=== PATIENT | female | born 1935 | race Caucasian/White ===

== ENCOUNTER 2016-11-02 11:05 | Inpatient (IN) | payer MEDICARE ==
[~2016-11-02] VITALS: Ht 154.9 cm; Wt 64.5 kg
[2016-11-02] MEDS ORDERED: DUONEB INH ONE (13:03)
[2016-11-02 18:15] VITALS: BP_SYST 142; RESP 18; TEMP 98.7; Ht 154.9 cm; Wt 64.5 kg
[2016-11-02] MEDS: PANTOPRAZOLE 40 MG VIAL IV SCH (20:57)
[2016-11-02 23:05] VITALS: BP_SYST 113; RESP 18; TEMP 99.1
[2016-11-03] VITALS (13 sets, daily range): BP systolic 111–135; RESP 16–20; TEMP 98.3–99.4
[2016-11-03] MEDS: PANTOPRAZOLE 40 MG VIAL IV SCH ×2 (08:22→21:16)
[2016-11-03] MEDS ORDERED: PROMETHAZINE 25 MG TAB PO PRN (09:45)
[2016-11-03] MEDS ORDERED: NEB-BROVANA 15 MCG/2 ML INH ONE (10:16)
[2016-11-03] MEDS ORDERED: DIGOXIN 0.125 MG TAB PO SCH (12:00)
[2016-11-03] MEDS: LEVOFLOXACIN 500 MG/100 ML 100 ML IV SCH (13:19)
[2016-11-03] MEDS: AMIODARONE 200 MG TAB PO SCH (14:46)
[2016-11-03] MEDS: METRONIDAZOLE IV SCH ×3 (14:46→23:52)
[2016-11-03] MEDS: SODIUM CHLORIDE 0.9% IV SCH ×3 (14:46→23:52)
[2016-11-03] MEDS ORDERED: ADEMPAS 2.5 MG PO SCH (16:00)
[2016-11-03] MEDS: NEB-BROVANA 15 MCG/2 ML INH SCH (19:49)
[2016-11-03] MEDS ORDERED: *PINK BRACELET XX ONE (20:30)
[2016-11-03] MEDS ORDERED: DEXTROSE 50% SYRINGE 50 ML IV PRN (20:50)
[2016-11-03] MEDS ORDERED: GLUCAGON 1 MG VIAL IM PRN (20:50)
[2016-11-03] MEDS: ADEMPAS 2.5 MG PO SCH (21:19)
[2016-11-03] MEDS: BOSENTAN 125 MG PO SCH (21:19)
[2016-11-03] MEDS: KCL 20 MEQ PACK PO SCH (21:20)
[2016-11-03] MEDS: PSEUDOEPHEDRINE 30 MG PO SCH (21:27)
[2016-11-03] MEDS: GUAIFENESIN ER 600 MG TABCR PO SCH (21:27)
[2016-11-03] MEDS: DULoxetine 30 MG CAP PO SCH (21:27)
[2016-11-03] MEDS: METOPROLOL TART 50 MG TAB PO SCH (21:27)
[2016-11-03] MEDS: Furosemide 40 MG TAB PO SCH (21:27)
[2016-11-03] MEDS: [UNRECOGNIZED DRUG - OTHER] RECTAL SCH (21:28)
[2016-11-03] MEDS: DUONEB INH PRN (22:53)
[2016-11-03] MEDS ORDERED: TREPROSTINIL 1.74 MG/2.9 ML INH SCH (23:00)
[2016-11-04 03:12] VITALS: BP_SYST 122; RESP 20; TEMP 98.9
[2016-11-04] MEDS: SODIUM CHLORIDE 0.9% IV SCH ×4 (05:23→23:56)
[2016-11-04] MEDS: METRONIDAZOLE IV SCH ×4 (05:23→23:56)
[2016-11-04] MEDS: ALPRAZOLAM 0.25 MG TAB PO PRN ×2 (05:23→20:12)
[2016-11-04] MEDS: SODIUM CHLORIDE 0.9% FLUSH BAG 500 ML IV SCH (06:39)
[2016-11-04] MEDS: NEB-BROVANA 15 MCG/2 ML INH SCH ×2 (06:54→19:03)
[2016-11-04] MEDS: DUONEB INH PRN ×4 (06:54→22:40)
[2016-11-04] MEDS: TREPROSTINIL 1.74 MG/2.9 ML INH SCH ×4 (07:15→22:42)
[2016-11-04 07:20] VITALS: BP_SYST 116; RESP 16; TEMP 97.8
[2016-11-04] MEDS: *HOME MEDS IN MED CART XX SCH ×2 (08:00→21:00)
[2016-11-04] MEDS ORDERED: TORSEMIDE 20 MG TAB PO SCH (09:00)
[2016-11-04] MEDS: PSEUDOEPHEDRINE 30 MG PO SCH ×2 (09:00→20:59)
[2016-11-04] MEDS: PANTOPRAZOLE 40 MG VIAL IV SCH ×2 (09:27→21:00)
[2016-11-04] MEDS: SALINE FLUSH 10 ML FLUSH SCH ×2 (09:27→21:00)
[2016-11-04] MEDS: novoLOG MIX 70/30 INSULIN SUBQ SCH (09:28)
[2016-11-04] MEDS: LEVOFLOXACIN 500 MG/100 ML 100 ML IV SCH (09:29)
[2016-11-04] MEDS: ADEMPAS 2.5 MG PO SCH ×3 (09:29→20:55)
[2016-11-04] MEDS: BOSENTAN 125 MG PO SCH ×2 (09:29→20:58)
[2016-11-04] MEDS: AMIODARONE 200 MG TAB PO SCH (09:30)
[2016-11-04] MEDS: METOPROLOL TART 50 MG TAB PO SCH ×2 (09:30→20:59)
[2016-11-04] MEDS: KCL 20 MEQ PACK PO SCH ×2 (09:30→20:58)
[2016-11-04] MEDS: FEXOFENADINE 180 MG TAB PO SCH (09:30)
[2016-11-04] MEDS: GUAIFENESIN ER 600 MG TABCR PO SCH ×2 (09:30→21:00)
[2016-11-04] MEDS: MONTELUKAST 10 MG TAB PO SCH (09:31)
[2016-11-04] MEDS: SPIRONOLACTONE 25 MG TAB PO SCH (09:31)
[2016-11-04] MEDS: PREDNISONE 20 MG TAB PO SCH (09:31)
[2016-11-04] MEDS: Furosemide 40 MG TAB PO SCH ×2 (09:31→20:59)
[2016-11-04 10:42] VITALS: BP_SYST 132; RESP 20; TEMP 97.9
[2016-11-04 14:39] VITALS: BP_SYST 124; RESP 20; TEMP 98
[2016-11-04] MEDS ORDERED: novoLOG MIX 70/30 INSULIN SUBQ SCH (17:00)
[2016-11-04 19:36] VITALS: BP_SYST 116; RESP 18; TEMP 98.5
[2016-11-04] MEDS: [UNRECOGNIZED DRUG - OTHER] RECTAL SCH (20:59)
[2016-11-04] MEDS: DULoxetine 30 MG CAP PO SCH (20:59)
[2016-11-04 23:50] VITALS: BP_SYST 115; RESP 16; TEMP 98.6
[2016-11-05] VITALS (11 sets, daily range): BP systolic 103–125; RESP 18–24; TEMP 98.4–98.8
[2016-11-05] MEDS: SODIUM CHLORIDE 0.9% FLUSH BAG 500 ML IV SCH (05:38)
[2016-11-05] MEDS: METRONIDAZOLE IV SCH ×3 (05:39→18:21)
[2016-11-05] MEDS: SODIUM CHLORIDE 0.9% IV SCH ×3 (05:39→18:21)
[2016-11-05] MEDS: NEB-BROVANA 15 MCG/2 ML INH SCH ×2 (06:19→19:34)
[2016-11-05] MEDS: TREPROSTINIL 1.74 MG/2.9 ML INH SCH ×4 (06:19→23:04)
[2016-11-05] MEDS: DUONEB INH PRN ×4 (06:19→22:57)
[2016-11-05] MEDS: *HOME MEDS IN MED CART XX SCH ×2 (07:25→19:26)
[2016-11-05] MEDS: PANTOPRAZOLE 40 MG VIAL IV SCH (08:01)
[2016-11-05] MEDS: novoLOG MIX 70/30 INSULIN SUBQ SCH ×2 (08:02→17:10)
[2016-11-05] MEDS: SPIRONOLACTONE 25 MG TAB PO SCH (08:03)
[2016-11-05] MEDS: KCL 20 MEQ PACK PO SCH ×2 (08:03→21:08)
[2016-11-05] MEDS: LEVOFLOXACIN 500 MG/100 ML 100 ML IV SCH (08:03)
[2016-11-05] MEDS: GUAIFENESIN ER 600 MG TABCR PO SCH ×2 (08:04→21:09)
[2016-11-05] MEDS: PREDNISONE 20 MG TAB PO SCH (08:04)
[2016-11-05] MEDS: Furosemide 40 MG TAB PO SCH ×2 (08:04→21:09)
[2016-11-05] MEDS: AMIODARONE 200 MG TAB PO SCH (08:04)
[2016-11-05] MEDS: MONTELUKAST 10 MG TAB PO SCH (08:04)
[2016-11-05] MEDS: FEXOFENADINE 180 MG TAB PO SCH (08:04)
[2016-11-05] MEDS: BOSENTAN 125 MG PO SCH ×2 (08:04→21:09)
[2016-11-05] MEDS: ADEMPAS 2.5 MG PO SCH ×3 (08:05→21:09)
[2016-11-05] MEDS: ALPRAZOLAM 0.25 MG TAB PO PRN (08:10)
[2016-11-05] MEDS: METOPROLOL TART 50 MG TAB PO SCH ×2 (08:20→21:08)
[2016-11-05] MEDS: SALINE FLUSH 10 ML FLUSH SCH ×2 (08:20→21:07)
[2016-11-05] MEDS: PSEUDOEPHEDRINE 30 MG PO SCH ×2 (08:20→21:08)
[2016-11-05] MEDS: IRON SUCROSE COMPLEX 300 MG in SODIUM CHLORIDE 0.9% 250 ML IV SCH (10:39)
[2016-11-05] MEDS: PANTOPRAZOLE 40 MG TAB PO SCH (17:09)
[2016-11-05] MEDS: DULoxetine 30 MG CAP PO SCH (21:09)
[2016-11-05] MEDS: [UNRECOGNIZED DRUG - OTHER] RECTAL SCH (21:10)
[2016-11-06] VITALS (10 sets, daily range): BP systolic 100–122; RESP 18; TEMP 97.8–98.6
[2016-11-06] MEDS: SALINE FLUSH 10 ML FLUSH PRN ×2 (00:31→05:49)
[2016-11-06] MEDS: SODIUM CHLORIDE 0.9% IV SCH ×4 (00:31→19:30)
[2016-11-06] MEDS: METRONIDAZOLE IV SCH ×4 (00:31→19:30)
[2016-11-06] MEDS: OXYCODONE/APAP 5/325 TAB PO PRN (02:05)
[2016-11-06] MEDS: SODIUM CHLORIDE 0.9% FLUSH BAG 500 ML IV SCH (05:49)
[2016-11-06] MEDS: PANTOPRAZOLE 40 MG TAB PO SCH ×2 (05:54→16:51)
[2016-11-06] MEDS: DUONEB INH PRN ×4 (06:48→23:00)
[2016-11-06] MEDS: NEB-BROVANA 15 MCG/2 ML INH SCH ×2 (06:48→18:28)
[2016-11-06] MEDS: TREPROSTINIL 1.74 MG/2.9 ML INH SCH ×4 (07:00→23:01)
[2016-11-06] MEDS: *HOME MEDS IN MED CART XX SCH ×2 (07:11→19:45)
[2016-11-06] MEDS: KCL 20 MEQ PACK PO SCH ×2 (08:13→21:39)
[2016-11-06] MEDS: METOPROLOL TART 50 MG TAB PO SCH ×2 (08:14→21:41)
[2016-11-06] MEDS: novoLOG MIX 70/30 INSULIN SUBQ SCH ×2 (08:14→17:09)
[2016-11-06] MEDS: FEXOFENADINE 180 MG TAB PO SCH (08:14)
[2016-11-06] MEDS: BOSENTAN 125 MG PO SCH ×2 (08:14→21:41)
[2016-11-06] MEDS: AMIODARONE 200 MG TAB PO SCH (08:14)
[2016-11-06] MEDS: ADEMPAS 2.5 MG PO SCH ×3 (08:14→21:41)
[2016-11-06] MEDS: PSEUDOEPHEDRINE 30 MG PO SCH ×2 (08:15→21:00)
[2016-11-06] MEDS: Furosemide 40 MG TAB PO SCH ×2 (08:15→21:40)
[2016-11-06] MEDS: MONTELUKAST 10 MG TAB PO SCH (08:15)
[2016-11-06] MEDS: PREDNISONE 20 MG TAB PO SCH (08:15)
[2016-11-06] MEDS: GUAIFENESIN ER 600 MG TABCR PO SCH ×2 (08:16→21:40)
[2016-11-06] MEDS: LEVOFLOXACIN 500 MG/100 ML 100 ML IV SCH (08:16)
[2016-11-06] MEDS: SPIRONOLACTONE 25 MG TAB PO SCH (08:17)
[2016-11-06] MEDS: SALINE FLUSH 10 ML FLUSH SCH ×2 (08:17→21:42)
[2016-11-06] MEDS: IRON SUCROSE COMPLEX 300 MG in SODIUM CHLORIDE 0.9% 250 ML IV SCH (10:58)
[2016-11-06] MEDS: ALPRAZOLAM 0.25 MG TAB PO PRN (20:04)
[2016-11-06] MEDS ORDERED: MISSING DOSE XX ONE (21:05)
[2016-11-06] MEDS: DULoxetine 30 MG CAP PO SCH (21:41)
[2016-11-06] MEDS: [UNRECOGNIZED DRUG - OTHER] RECTAL SCH (21:42)
[2016-11-07] VITALS (7 sets, daily range): BP systolic 96–115; RESP 18–22; TEMP 97.9–98.8
[2016-11-07] MEDS: SODIUM CHLORIDE 0.9% IV SCH ×4 (00:19→22:06)
[2016-11-07] MEDS: SALINE FLUSH 10 ML FLUSH PRN ×2 (00:19→06:06)
[2016-11-07] MEDS: METRONIDAZOLE IV SCH ×4 (00:19→22:06)
[2016-11-07] MEDS: OXYCODONE/APAP 5/325 TAB PO PRN (03:29)
[2016-11-07] MEDS: SODIUM CHLORIDE 0.9% FLUSH BAG 500 ML IV SCH (06:06)
[2016-11-07] MEDS: PANTOPRAZOLE 40 MG TAB PO SCH ×2 (06:06→16:26)
[2016-11-07] MEDS: NEB-BROVANA 15 MCG/2 ML INH SCH ×2 (06:30→18:40)
[2016-11-07] MEDS: TREPROSTINIL 1.74 MG/2.9 ML INH SCH ×6 (06:30→22:51)
[2016-11-07] MEDS: DUONEB INH PRN ×4 (06:30→22:47)
[2016-11-07] MEDS: *HOME MEDS IN MED CART XX SCH ×2 (08:00→20:00)
[2016-11-07] MEDS: novoLOG MIX 70/30 INSULIN SUBQ SCH ×2 (08:42→17:20)
[2016-11-07] MEDS: SALINE FLUSH 10 ML FLUSH SCH ×2 (08:42→20:14)
[2016-11-07] MEDS: IRON SUCROSE COMPLEX 300 MG in SODIUM CHLORIDE 0.9% 250 ML IV SCH (08:44)
[2016-11-07] MEDS: ADEMPAS 2.5 MG PO SCH ×3 (08:44→20:19)
[2016-11-07] MEDS: LEVOFLOXACIN 250 MG TAB PO SCH (08:45)
[2016-11-07] MEDS: BOSENTAN 125 MG PO SCH ×2 (08:45→20:19)
[2016-11-07] MEDS: AMIODARONE 200 MG TAB PO SCH (08:46)
[2016-11-07] MEDS: METOPROLOL TART 50 MG TAB PO SCH ×2 (08:46→22:42)
[2016-11-07] MEDS: Furosemide 40 MG TAB PO SCH ×2 (08:46→20:17)
[2016-11-07] MEDS: SPIRONOLACTONE 25 MG TAB PO SCH (08:46)
[2016-11-07] MEDS: PREDNISONE 20 MG TAB PO SCH (08:47)
[2016-11-07] MEDS: GUAIFENESIN ER 600 MG TABCR PO SCH ×2 (08:47→20:16)
[2016-11-07] MEDS: FEXOFENADINE 180 MG TAB PO SCH (08:47)
[2016-11-07] MEDS: MONTELUKAST 10 MG TAB PO SCH (08:47)
[2016-11-07] MEDS: PSEUDOEPHEDRINE 30 MG PO SCH ×3 (08:47→20:16)
[2016-11-07] MEDS: KCL 20 MEQ PACK PO SCH ×2 (08:47→20:19)
[2016-11-07] MEDS: ALPRAZOLAM 0.25 MG TAB PO PRN (14:54)
[2016-11-07] MEDS: DULoxetine 30 MG CAP PO SCH (20:15)
[2016-11-07] MEDS: [UNRECOGNIZED DRUG - OTHER] RECTAL SCH (20:21)
[2016-11-08] VITALS (10 sets, daily range): BP systolic 90–121; RESP 18–24; TEMP 98.1–99.2
[2016-11-08] MEDS: SODIUM CHLORIDE 0.9% IV SCH ×4 (04:12→21:54)
[2016-11-08] MEDS: METRONIDAZOLE IV SCH ×4 (04:12→21:54)
[2016-11-08] MEDS: SODIUM CHLORIDE 0.9% FLUSH BAG 500 ML IV SCH (05:53)
[2016-11-08] MEDS: PANTOPRAZOLE 40 MG TAB PO SCH ×2 (06:10→16:20)
[2016-11-08] MEDS: DUONEB INH PRN ×4 (07:44→22:39)
[2016-11-08] MEDS: NEB-BROVANA 15 MCG/2 ML INH SCH ×2 (07:44→18:39)
[2016-11-08] MEDS: TREPROSTINIL 1.74 MG/2.9 ML INH SCH ×4 (07:46→22:39)
[2016-11-08] MEDS: *HOME MEDS IN MED CART XX SCH ×2 (08:00→15:08)
[2016-11-08] MEDS: novoLOG MIX 70/30 INSULIN SUBQ SCH ×2 (08:56→17:20)
[2016-11-08] MEDS: GUAIFENESIN ER 600 MG TABCR PO SCH ×2 (08:59→20:30)
[2016-11-08] MEDS: PREDNISONE 20 MG TAB PO SCH (08:59)
[2016-11-08] MEDS: MONTELUKAST 10 MG TAB PO SCH (08:59)
[2016-11-08] MEDS: LEVOFLOXACIN 250 MG TAB PO SCH (08:59)
[2016-11-08] MEDS: PSEUDOEPHEDRINE 30 MG PO SCH ×2 (08:59→20:29)
[2016-11-08] MEDS: AMIODARONE 200 MG TAB PO SCH (09:00)
[2016-11-08] MEDS: SPIRONOLACTONE 25 MG TAB PO SCH (09:00)
[2016-11-08] MEDS: METOPROLOL TART 50 MG TAB PO SCH ×2 (09:00→20:30)
[2016-11-08] MEDS: BOSENTAN 125 MG PO SCH ×2 (09:01→20:32)
[2016-11-08] MEDS: ADEMPAS 2.5 MG PO SCH ×3 (09:01→20:32)
[2016-11-08] MEDS: FEXOFENADINE 180 MG TAB PO SCH (09:01)
[2016-11-08] MEDS: SALINE FLUSH 10 ML FLUSH SCH ×2 (09:03→18:04)
[2016-11-08] MEDS: IRON SUCROSE COMPLEX 300 MG in SODIUM CHLORIDE 0.9% 250 ML IV SCH ×2 (09:03→12:21)
[2016-11-08] MEDS: KCL 20 MEQ PACK PO SCH ×2 (09:04→20:29)
[2016-11-08] MEDS: OXYCODONE/APAP 5/325 TAB PO PRN (10:36)
[2016-11-08] MEDS ORDERED: Furosemide 20 MG/2 ML VIAL IV ONE ×2 (12:25→17:00)
[2016-11-08] MEDS ORDERED: MISSING DOSE XX ONE (12:25)
[2016-11-08] MEDS: MAG OXIDE 400 MG TAB PO SCH ×2 (14:51→20:32)
[2016-11-08] MEDS: Furosemide 20 MG/2 ML VIAL IV SCH (18:04)
[2016-11-08] MEDS: DULoxetine 30 MG CAP PO SCH (20:30)
[2016-11-08] MEDS: [UNRECOGNIZED DRUG - OTHER] RECTAL SCH (20:31)
[2016-11-08] MEDS: ALPRAZOLAM 0.25 MG TAB PO PRN (21:59)
[2016-11-09] MEDS: SODIUM CHLORIDE 0.9% IV SCH ×4 (03:57→22:11)
[2016-11-09] MEDS: METRONIDAZOLE IV SCH ×4 (03:57→22:11)
[2016-11-09] MEDS: SODIUM CHLORIDE 0.9% FLUSH BAG 500 ML IV SCH (03:57)
[2016-11-09 04:42] VITALS: BP_SYST 111; RESP 20; TEMP 98.3
[2016-11-09] MEDS: PANTOPRAZOLE 40 MG TAB PO SCH ×2 (06:03→16:55)
[2016-11-09 07:36] VITALS: BP_SYST 120; RESP 20; TEMP 98.1
[2016-11-09] MEDS: DUONEB INH PRN ×4 (07:57→22:04)
[2016-11-09] MEDS: NEB-BROVANA 15 MCG/2 ML INH SCH ×2 (07:57→18:21)
[2016-11-09] MEDS: TREPROSTINIL 1.74 MG/2.9 ML INH SCH ×4 (08:03→22:05)
[2016-11-09] MEDS ORDERED: MISSING DOSE XX ONE (08:25)
[2016-11-09] MEDS: SALINE FLUSH 10 ML FLUSH SCH ×2 (08:58→21:05)
[2016-11-09] MEDS: Furosemide 20 MG/2 ML VIAL IV SCH ×2 (08:59→16:56)
[2016-11-09] MEDS: PSEUDOEPHEDRINE 30 MG PO SCH ×2 (09:00→21:04)
[2016-11-09] MEDS: novoLOG MIX 70/30 INSULIN SUBQ SCH ×2 (09:02→18:04)
[2016-11-09] MEDS: METOPROLOL TART 50 MG TAB PO SCH ×2 (09:03→21:04)
[2016-11-09] MEDS: MONTELUKAST 10 MG TAB PO SCH (09:03)
[2016-11-09] MEDS: MAG OXIDE 400 MG TAB PO SCH ×2 (09:04→21:04)
[2016-11-09] MEDS: FEXOFENADINE 180 MG TAB PO SCH (09:05)
[2016-11-09] MEDS: GUAIFENESIN ER 600 MG TABCR PO SCH ×2 (09:05→21:03)
[2016-11-09] MEDS: AMIODARONE 200 MG TAB PO SCH (09:06)
[2016-11-09] MEDS: PREDNISONE 20 MG TAB PO SCH (09:07)
[2016-11-09] MEDS: BOSENTAN 125 MG PO SCH ×2 (09:07→21:03)
[2016-11-09] MEDS: LEVOFLOXACIN 250 MG TAB PO SCH (09:07)
[2016-11-09] MEDS: ADEMPAS 2.5 MG PO SCH ×3 (09:08→21:02)
[2016-11-09] MEDS: KCL 20 MEQ PACK PO SCH ×2 (09:09→21:04)
[2016-11-09] MEDS: SPIRONOLACTONE 25 MG TAB PO SCH (09:16)
[2016-11-09] MEDS: ALPRAZOLAM 0.25 MG TAB PO PRN (09:16)
[2016-11-09 11:08] VITALS: BP_SYST 115; RESP 18; TEMP 97.9
[2016-11-09 15:27] VITALS: BP_SYST 111; RESP 20; TEMP 98.3
[2016-11-09 19:02] VITALS: BP_SYST 121; RESP 22; TEMP 98
[2016-11-09] MEDS: *HOME MEDS IN MED CART XX SCH ×2 (20:00→21:05)
[2016-11-09] MEDS: [UNRECOGNIZED DRUG - OTHER] RECTAL SCH (21:03)
[2016-11-09] MEDS: DULoxetine 30 MG CAP PO SCH (21:04)
[2016-11-10] VITALS (9 sets, daily range): BP systolic 102–128; RESP 18–24; TEMP 97.6–98.8
[2016-11-10] MEDS: ALPRAZOLAM 0.25 MG TAB PO PRN ×2 (00:53→20:22)
[2016-11-10] MEDS: SODIUM CHLORIDE 0.9% IV SCH ×4 (05:18→21:43)
[2016-11-10] MEDS: METRONIDAZOLE IV SCH ×4 (05:18→21:43)
[2016-11-10] MEDS: PANTOPRAZOLE 40 MG TAB PO SCH ×2 (06:13→16:39)
[2016-11-10] MEDS: OXYCODONE/APAP 5/325 TAB PO PRN (06:16)
[2016-11-10] MEDS: DUONEB INH PRN ×5 (06:26→23:18)
[2016-11-10] MEDS: NEB-BROVANA 15 MCG/2 ML INH SCH ×2 (06:26→19:51)
[2016-11-10] MEDS: SODIUM CHLORIDE 0.9% FLUSH BAG 500 ML IV SCH (06:32)
[2016-11-10] MEDS: TREPROSTINIL 1.74 MG/2.9 ML INH SCH ×4 (06:51→23:19)
[2016-11-10] MEDS: *HOME MEDS IN MED CART XX SCH ×2 (07:45→20:00)
[2016-11-10] MEDS: FEXOFENADINE 180 MG TAB PO SCH (08:07)
[2016-11-10] MEDS: METOPROLOL TART 50 MG TAB PO SCH ×2 (08:07→20:22)
[2016-11-10] MEDS: novoLOG MIX 70/30 INSULIN SUBQ SCH ×2 (08:07→16:40)
[2016-11-10] MEDS: SALINE FLUSH 10 ML FLUSH SCH ×2 (08:07→20:19)
[2016-11-10] MEDS: Furosemide 20 MG/2 ML VIAL IV SCH (08:07)
[2016-11-10] MEDS: AMIODARONE 200 MG TAB PO SCH (08:07)
[2016-11-10] MEDS: MAG OXIDE 400 MG TAB PO SCH ×2 (08:08→20:22)
[2016-11-10] MEDS: SPIRONOLACTONE 25 MG TAB PO SCH (08:08)
[2016-11-10] MEDS: GUAIFENESIN ER 600 MG TABCR PO SCH ×2 (08:08→20:21)
[2016-11-10] MEDS: MONTELUKAST 10 MG TAB PO SCH (08:08)
[2016-11-10] MEDS: PREDNISONE 20 MG TAB PO SCH (08:08)
[2016-11-10] MEDS: LEVOFLOXACIN 250 MG TAB PO SCH (08:08)
[2016-11-10] MEDS: KCL 20 MEQ PACK PO SCH ×3 (08:10→20:22)
[2016-11-10] MEDS: ADEMPAS 2.5 MG PO SCH ×3 (08:10→20:20)
[2016-11-10] MEDS: BOSENTAN 125 MG PO SCH ×2 (08:10→20:19)
[2016-11-10] MEDS: PSEUDOEPHEDRINE 30 MG PO SCH ×2 (08:11→20:21)
[2016-11-10] MEDS: Furosemide 40 MG/4 ML VIAL IV SCH (16:40)
[2016-11-10] MEDS: DULoxetine 30 MG CAP PO SCH (20:21)
[2016-11-10] MEDS: [UNRECOGNIZED DRUG - OTHER] RECTAL SCH (20:23)
[2016-11-11] VITALS (11 sets, daily range): BP systolic 101–132; RESP 18–20; TEMP 97.9–98.6
[2016-11-11] MEDS: SODIUM CHLORIDE 0.9% IV SCH ×4 (03:15→22:26)
[2016-11-11] MEDS: METRONIDAZOLE IV SCH ×4 (03:15→22:26)
[2016-11-11] MEDS: SODIUM CHLORIDE 0.9% FLUSH BAG 500 ML IV SCH (05:23)
[2016-11-11] MEDS: PANTOPRAZOLE 40 MG TAB PO SCH ×2 (05:55→15:25)
[2016-11-11] MEDS: TREPROSTINIL 1.74 MG/2.9 ML INH SCH ×4 (06:55→23:42)
[2016-11-11] MEDS: DUONEB INH PRN ×4 (06:55→23:41)
[2016-11-11] MEDS: NEB-BROVANA 15 MCG/2 ML INH SCH ×2 (06:55→19:53)
[2016-11-11] MEDS: ALPRAZOLAM 0.25 MG TAB PO PRN (07:55)
[2016-11-11] MEDS: *HOME MEDS IN MED CART XX SCH ×2 (08:00→21:16)
[2016-11-11] MEDS: MAG OXIDE 400 MG TAB PO SCH ×2 (08:58→22:15)
[2016-11-11] MEDS: PSEUDOEPHEDRINE 30 MG PO SCH ×2 (09:00→22:14)
[2016-11-11] MEDS: KCL 20 MEQ PACK PO SCH ×3 (09:01→22:16)
[2016-11-11] MEDS: Furosemide 40 MG/4 ML VIAL IV SCH ×2 (09:02→17:14)
[2016-11-11] MEDS: SALINE FLUSH 10 ML FLUSH SCH ×2 (09:03→22:26)
[2016-11-11] MEDS: novoLOG MIX 70/30 INSULIN SUBQ SCH ×2 (09:07→17:11)
[2016-11-11] MEDS: METOPROLOL TART 50 MG TAB PO SCH ×2 (09:09→22:14)
[2016-11-11] MEDS: AMIODARONE 200 MG TAB PO SCH (09:09)
[2016-11-11] MEDS: MONTELUKAST 10 MG TAB PO SCH (09:09)
[2016-11-11] MEDS: FEXOFENADINE 180 MG TAB PO SCH (09:09)
[2016-11-11] MEDS: SPIRONOLACTONE 25 MG TAB PO SCH (09:09)
[2016-11-11] MEDS: PREDNISONE 20 MG TAB PO SCH (09:10)
[2016-11-11] MEDS: ADEMPAS 2.5 MG PO SCH ×3 (09:10→22:15)
[2016-11-11] MEDS: GUAIFENESIN ER 600 MG TABCR PO SCH ×2 (09:10→22:14)
[2016-11-11] MEDS: BOSENTAN 125 MG PO SCH ×2 (09:10→22:14)
[2016-11-11] MEDS: [UNRECOGNIZED DRUG - OTHER] RECTAL SCH (22:14)
[2016-11-11] MEDS: DULoxetine 30 MG CAP PO SCH (22:14)
[2016-11-12] VITALS (7 sets, daily range): BP systolic 104–130; RESP 18–24; TEMP 97.7–99.1
[2016-11-12] MEDS: METRONIDAZOLE IV SCH ×2 (05:37→08:48)
[2016-11-12] MEDS: SODIUM CHLORIDE 0.9% IV SCH ×2 (05:37→08:48)
[2016-11-12] MEDS: PANTOPRAZOLE 40 MG TAB PO SCH ×2 (06:15→16:24)
[2016-11-12] MEDS: SODIUM CHLORIDE 0.9% FLUSH BAG 500 ML IV SCH (06:16)
[2016-11-12] MEDS: NEB-BROVANA 15 MCG/2 ML INH SCH ×2 (07:41→19:35)
[2016-11-12] MEDS: DUONEB INH PRN ×4 (07:41→23:32)
[2016-11-12] MEDS: TREPROSTINIL 1.74 MG/2.9 ML INH SCH ×4 (07:42→23:32)
[2016-11-12] MEDS: *HOME MEDS IN MED CART XX SCH ×2 (08:00→20:00)
[2016-11-12] MEDS: ALPRAZOLAM 0.25 MG TAB PO PRN (08:27)
[2016-11-12] MEDS: SALINE FLUSH 10 ML FLUSH SCH ×2 (08:31→22:07)
[2016-11-12] MEDS: novoLOG MIX 70/30 INSULIN SUBQ SCH ×2 (08:32→17:19)
[2016-11-12] MEDS: BOSENTAN 125 MG PO SCH ×2 (08:33→22:08)
[2016-11-12] MEDS: ADEMPAS 2.5 MG PO SCH ×3 (08:33→22:07)
[2016-11-12] MEDS: SPIRONOLACTONE 25 MG TAB PO SCH (08:34)
[2016-11-12] MEDS: FEXOFENADINE 180 MG TAB PO SCH (08:34)
[2016-11-12] MEDS: AMIODARONE 200 MG TAB PO SCH (08:35)
[2016-11-12] MEDS: METOPROLOL TART 50 MG TAB PO SCH ×2 (08:35→22:11)
[2016-11-12] MEDS: MONTELUKAST 10 MG TAB PO SCH (08:35)
[2016-11-12] MEDS: GUAIFENESIN ER 600 MG TABCR PO SCH ×2 (08:35→22:12)
[2016-11-12] MEDS: PREDNISONE 20 MG TAB PO SCH (08:35)
[2016-11-12] MEDS: MAG OXIDE 400 MG TAB PO SCH ×2 (08:37→22:12)
[2016-11-12] MEDS: KCL 20 MEQ PACK PO SCH ×3 (08:38→22:11)
[2016-11-12] MEDS: Furosemide 40 MG/4 ML VIAL IV SCH ×2 (08:39→16:24)
[2016-11-12] MEDS: PSEUDOEPHEDRINE 30 MG PO SCH ×2 (08:49→22:12)
[2016-11-12] MEDS ORDERED: IRON SUCROSE COMPLEX 300 MG in SODIUM CHLORIDE 0.9% 250 ML IV ONE (15:15)
[2016-11-12] MEDS ORDERED: Furosemide 100 MG/10 ML VIAL IV ONE (15:15)
[2016-11-12] MEDS ORDERED: ALBUMIN 12.5 GM/50 ML (25%) IV ONE (15:15)
[2016-11-12] MEDS: METRONIDAZOLE 250 MG TAB PO SCH ×2 (16:24→22:11)
[2016-11-12] MEDS: [UNRECOGNIZED DRUG - OTHER] RECTAL SCH (22:09)
[2016-11-12] MEDS: DULoxetine 30 MG CAP PO SCH (22:12)
[2016-11-13] MEDS: SODIUM CHLORIDE 0.9% FLUSH BAG 500 ML IV SCH (04:20)
[2016-11-13 04:38] VITALS: BP_SYST 121; RESP 24; TEMP 98.3
[2016-11-13] MEDS: PANTOPRAZOLE 40 MG TAB PO SCH ×2 (06:26→15:58)
[2016-11-13] MEDS: DUONEB INH PRN ×5 (06:50→22:36)
[2016-11-13] MEDS: NEB-BROVANA 15 MCG/2 ML INH SCH ×2 (06:50→17:32)
[2016-11-13] MEDS: TREPROSTINIL 1.74 MG/2.9 ML INH SCH ×4 (07:00→22:36)
[2016-11-13 07:10] VITALS: BP_SYST 103; RESP 18; TEMP 97.8
[2016-11-13] MEDS: *HOME MEDS IN MED CART XX SCH ×2 (08:00→20:00)
[2016-11-13] MEDS: novoLOG MIX 70/30 INSULIN SUBQ SCH ×2 (08:27→17:09)
[2016-11-13] MEDS: FEXOFENADINE 180 MG TAB PO SCH (08:28)
[2016-11-13] MEDS: MONTELUKAST 10 MG TAB PO SCH (08:28)
[2016-11-13] MEDS: METRONIDAZOLE 250 MG TAB PO SCH ×4 (08:28→20:41)
[2016-11-13] MEDS: GUAIFENESIN ER 600 MG TABCR PO SCH ×2 (08:28→20:41)
[2016-11-13] MEDS: PSEUDOEPHEDRINE 30 MG PO SCH (08:28)
[2016-11-13] MEDS: MAG OXIDE 400 MG TAB PO SCH (08:29)
[2016-11-13] MEDS: AMIODARONE 200 MG TAB PO SCH (08:29)
[2016-11-13] MEDS: ADEMPAS 2.5 MG PO SCH ×3 (08:29→20:40)
[2016-11-13] MEDS: METOPROLOL TART 50 MG TAB PO SCH ×2 (08:29→20:40)
[2016-11-13] MEDS: SPIRONOLACTONE 25 MG TAB PO SCH (08:29)
[2016-11-13] MEDS: BOSENTAN 125 MG PO SCH ×2 (08:30→20:40)
[2016-11-13] MEDS: KCL 20 MEQ PACK PO SCH ×3 (08:31→20:41)
[2016-11-13] MEDS: Furosemide 40 MG/4 ML VIAL IV SCH ×2 (08:40→18:04)
[2016-11-13] MEDS: SALINE FLUSH 10 ML FLUSH SCH ×2 (08:40→20:40)
[2016-11-13] MEDS ORDERED: PREDNISONE 10 MG TAB PO SCH (09:00)
[2016-11-13] MEDS ORDERED: EPOETIN 40,000 UNIT VIAL SUBQ ONE (09:00)
[2016-11-13 10:58] VITALS: BP_SYST 105; RESP 22; TEMP 97.2
[2016-11-13] MEDS ORDERED: Furosemide 100 MG/10 ML VIAL IV ONE (11:55)
[2016-11-13] MEDS ORDERED: ALBUMIN 12.5 GM/50 ML (25%) IV ONE (11:55)
[2016-11-13] MEDS ORDERED: Senna/DSS 50/8.6 MG TAB PO ONE (11:55)
[2016-11-13] MEDS ORDERED: POLYETHYLENE GLYCOL 17 GM PACKET PO PRN (11:55)
[2016-11-13 14:50] VITALS: BP_SYST 119; RESP 20; TEMP 97.8
[2016-11-13] MEDS: ALPRAZOLAM 0.25 MG TAB PO PRN (15:57)
[2016-11-13 19:14] VITALS: BP_SYST 100; RESP 20; TEMP 97.7
[2016-11-13] MEDS: [UNRECOGNIZED DRUG - OTHER] RECTAL SCH (20:40)
[2016-11-13] MEDS: DULoxetine 30 MG CAP PO SCH (20:41)
[2016-11-13 22:59] VITALS: BP_SYST 123; RESP 20; TEMP 98.1
[2016-11-14] MEDS: TREPROSTINIL 1.74 MG/2.9 ML INH SCH ×5 (02:57→22:56)
[2016-11-14 03:13] VITALS: BP_SYST 118; RESP 18; TEMP 98.5
[2016-11-14] MEDS: SODIUM CHLORIDE 0.9% FLUSH BAG 500 ML IV SCH (06:00)
[2016-11-14 07:09] VITALS: BP_SYST 132; RESP 20; TEMP 98.2
[2016-11-14] MEDS: NEB-BROVANA 15 MCG/2 ML INH SCH ×2 (07:32→19:17)
[2016-11-14] MEDS: DUONEB INH PRN ×4 (07:32→22:57)
[2016-11-14] MEDS: *HOME MEDS IN MED CART XX SCH ×2 (08:00→20:00)
[2016-11-14] MEDS: BOSENTAN 125 MG PO SCH ×2 (08:37→20:19)
[2016-11-14] MEDS: ADEMPAS 2.5 MG PO SCH ×3 (08:37→20:20)
[2016-11-14] MEDS: SALINE FLUSH 10 ML FLUSH SCH ×2 (08:37→20:19)
[2016-11-14] MEDS: MONTELUKAST 10 MG TAB PO SCH (08:38)
[2016-11-14] MEDS: SPIRONOLACTONE 25 MG TAB PO SCH (08:39)
[2016-11-14] MEDS: FEXOFENADINE 180 MG TAB PO SCH (08:39)
[2016-11-14] MEDS: GUAIFENESIN ER 600 MG TABCR PO SCH ×2 (08:39→20:21)
[2016-11-14] MEDS: METRONIDAZOLE 250 MG TAB PO SCH ×4 (08:39→20:21)
[2016-11-14] MEDS: PANTOPRAZOLE 40 MG TAB PO SCH ×2 (08:39→16:00)
[2016-11-14] MEDS: AMIODARONE 200 MG TAB PO SCH (08:39)
[2016-11-14] MEDS: Furosemide 40 MG/4 ML VIAL IV SCH (08:39)
[2016-11-14] MEDS: novoLOG MIX 70/30 INSULIN SUBQ SCH ×2 (08:40→17:14)
[2016-11-14] MEDS: KCL 20 MEQ PACK PO SCH ×3 (08:43→20:22)
[2016-11-14] MEDS: PREDNISONE 20 MG TAB PO SCH (08:44)
[2016-11-14] MEDS ORDERED: MISSING DOSE XX ONE ×2 (09:05→17:15)
[2016-11-14] MEDS: METOPROLOL TART 50 MG TAB PO SCH ×2 (10:13→20:20)
[2016-11-14 11:11] VITALS: BP_SYST 117; RESP 18; TEMP 98.2
[2016-11-14] MEDS: ALPRAZOLAM 0.25 MG TAB PO PRN (14:54)
[2016-11-14 15:50] VITALS: BP_SYST 116; RESP 18; TEMP 98.3
[2016-11-14] MEDS ORDERED: METOLAZONE 5 MG TAB PO ONE (16:15)
[2016-11-14] MEDS ORDERED: Furosemide 100 MG/10 ML VIAL IV ONE (16:15)
[2016-11-14 19:15] VITALS: BP_SYST 116; RESP 18; TEMP 98.4
[2016-11-14] MEDS: DULoxetine 30 MG CAP PO SCH (20:21)
[2016-11-14] MEDS: [UNRECOGNIZED DRUG - OTHER] RECTAL SCH (20:22)
[2016-11-14 23:43] VITALS: BP_SYST 112; RESP 20; TEMP 98.1
[2016-11-15 03:48] VITALS: BP_SYST 128; RESP 18; TEMP 98.7
[2016-11-15] MEDS: SODIUM CHLORIDE 0.9% FLUSH BAG 500 ML IV SCH ×2 (05:13→19:39)
[2016-11-15] MEDS: *HOME MEDS IN MED CART XX SCH ×2 (07:12→19:40)
[2016-11-15] MEDS: PANTOPRAZOLE 40 MG TAB PO SCH ×2 (07:16→16:07)
[2016-11-15] MEDS: SALINE FLUSH 10 ML FLUSH SCH ×2 (07:17→20:43)
[2016-11-15 07:36] VITALS: BP_SYST 115; RESP 20; TEMP 98
[2016-11-15] MEDS: DUONEB INH PRN ×4 (08:03→22:09)
[2016-11-15] MEDS: NEB-BROVANA 15 MCG/2 ML INH SCH ×2 (08:03→19:21)
[2016-11-15] MEDS: TREPROSTINIL 1.74 MG/2.9 ML INH SCH ×5 (08:03→22:19)
[2016-11-15] MEDS: BOSENTAN 125 MG PO SCH ×2 (08:39→20:39)
[2016-11-15] MEDS: AMIODARONE 200 MG TAB PO SCH (08:39)
[2016-11-15] MEDS: ADEMPAS 2.5 MG PO SCH ×3 (08:39→20:40)
[2016-11-15] MEDS: Furosemide 80 MG TAB PO SCH (08:39)
[2016-11-15] MEDS: GUAIFENESIN ER 600 MG TABCR PO SCH ×2 (08:40→20:39)
[2016-11-15] MEDS: FEXOFENADINE 180 MG TAB PO SCH (08:40)
[2016-11-15] MEDS: PREDNISONE 20 MG TAB PO SCH (08:40)
[2016-11-15] MEDS: SPIRONOLACTONE 25 MG TAB PO SCH (08:40)
[2016-11-15] MEDS: METRONIDAZOLE 250 MG TAB PO SCH ×3 (08:40→20:39)
[2016-11-15] MEDS: METOPROLOL TART 50 MG TAB PO SCH ×2 (08:40→20:39)
[2016-11-15] MEDS: METOLAZONE 5 MG TAB PO SCH (08:40)
[2016-11-15] MEDS: MONTELUKAST 10 MG TAB PO SCH (08:40)
[2016-11-15] MEDS: KCL 20 MEQ PACK PO SCH ×3 (08:41→20:46)
[2016-11-15] MEDS: novoLOG MIX 70/30 INSULIN SUBQ SCH (08:42)
[2016-11-15] MEDS ORDERED: HCTZ 25 MG TAB PO SCH (09:00)
[2016-11-15] MEDS ORDERED: LEVEMIR INSULIN SUBQ ONE (09:40)
[2016-11-15] MEDS: ALPRAZOLAM 0.25 MG TAB PO PRN (10:14)
[2016-11-15 11:30] VITALS: BP_SYST 101; RESP 18; TEMP 98.2
[2016-11-15] MEDS ORDERED: novoLOG MIX 70/30 INSULIN SUBQ SCH (17:00)
[2016-11-15 19:50] VITALS: BP_SYST 132; RESP 20; TEMP 98.3
[2016-11-15] MEDS: DULoxetine 30 MG CAP PO SCH (20:39)
[2016-11-15] MEDS: [UNRECOGNIZED DRUG - OTHER] RECTAL SCH (20:47)
[2016-11-15] MEDS ORDERED: LEVEMIR INSULIN SUBQ SCH (21:00)
[2016-11-16 04:11] VITALS: BP_SYST 126; RESP 20; TEMP 98.7
[2016-11-16] MEDS: PANTOPRAZOLE 40 MG TAB PO SCH ×2 (06:20→16:24)
[2016-11-16] MEDS: NEB-BROVANA 15 MCG/2 ML INH SCH ×2 (07:16→18:30)
[2016-11-16] MEDS: DUONEB INH PRN ×3 (07:16→22:05)
[2016-11-16] MEDS: TREPROSTINIL 1.74 MG/2.9 ML INH SCH ×4 (07:16→22:05)
[2016-11-16 07:37] VITALS: BP_SYST 120; RESP 20; TEMP 97.3
[2016-11-16] MEDS: *HOME MEDS IN MED CART XX SCH ×2 (08:00→20:00)
[2016-11-16] MEDS: SALINE FLUSH 10 ML FLUSH SCH ×2 (08:11→20:50)
[2016-11-16] MEDS: FEXOFENADINE 180 MG TAB PO SCH (08:12)
[2016-11-16] MEDS: METOLAZONE 5 MG TAB PO SCH (08:12)
[2016-11-16] MEDS: MONTELUKAST 10 MG TAB PO SCH (08:12)
[2016-11-16] MEDS: AMIODARONE 200 MG TAB PO SCH (08:12)
[2016-11-16] MEDS: PREDNISONE 20 MG TAB PO SCH (08:12)
[2016-11-16] MEDS: novoLOG MIX 70/30 INSULIN SUBQ SCH ×2 (08:12→16:59)
[2016-11-16] MEDS: METOPROLOL TART 50 MG TAB PO SCH ×2 (08:12→20:49)
[2016-11-16] MEDS: GUAIFENESIN ER 600 MG TABCR PO SCH ×2 (08:12→20:49)
[2016-11-16] MEDS: METRONIDAZOLE 250 MG TAB PO SCH ×3 (08:12→20:49)
[2016-11-16] MEDS: Furosemide 80 MG TAB PO SCH (08:13)
[2016-11-16] MEDS: ADEMPAS 2.5 MG PO SCH ×3 (08:13→20:50)
[2016-11-16] MEDS: SPIRONOLACTONE 25 MG TAB PO SCH (08:13)
[2016-11-16] MEDS: BOSENTAN 125 MG PO SCH ×2 (08:13→20:50)
[2016-11-16] MEDS: KCL 20 MEQ PACK PO SCH ×3 (08:15→20:54)
[2016-11-16] MEDS: ALPRAZOLAM 0.25 MG TAB PO PRN (10:39)
[2016-11-16 10:51] VITALS: BP_SYST 117; RESP 22; TEMP 98
[2016-11-16 15:32] VITALS: BP_SYST 116; RESP 20; TEMP 97.9
[2016-11-16 19:44] VITALS: BP_SYST 123; RESP 18; TEMP 97.8
[2016-11-16] MEDS: DULoxetine 30 MG CAP PO SCH (20:49)
[2016-11-16] MEDS: [UNRECOGNIZED DRUG - OTHER] RECTAL SCH (20:49)
[2016-11-16] MEDS: LEVEMIR INSULIN SUBQ SCH (20:49)
[2016-11-16 23:25] VITALS: BP_SYST 114; RESP 22; TEMP 98.5
[2016-11-17] VITALS (7 sets, daily range): BP systolic 98–143; RESP 18–20; TEMP 97.3–98.4
[2016-11-17] MEDS: SODIUM CHLORIDE 0.9% FLUSH BAG 500 ML IV SCH (05:33)
[2016-11-17] MEDS: NEB-BROVANA 15 MCG/2 ML INH SCH ×2 (06:05→19:27)
[2016-11-17] MEDS: TREPROSTINIL 1.74 MG/2.9 ML INH SCH ×4 (06:16→23:00)
[2016-11-17] MEDS: PANTOPRAZOLE 40 MG TAB PO SCH ×2 (06:21→15:16)
[2016-11-17] MEDS: *HOME MEDS IN MED CART XX SCH ×2 (07:49→19:53)
[2016-11-17] MEDS ORDERED: MISSING DOSE XX ONE (08:10)
[2016-11-17] MEDS: SALINE FLUSH 10 ML FLUSH SCH ×2 (08:10→20:30)
[2016-11-17] MEDS: novoLOG MIX 70/30 INSULIN SUBQ SCH ×2 (08:11→17:06)
[2016-11-17] MEDS: BOSENTAN 125 MG PO SCH ×2 (08:12→20:32)
[2016-11-17] MEDS: ADEMPAS 2.5 MG PO SCH ×3 (08:12→20:32)
[2016-11-17] MEDS: MONTELUKAST 10 MG TAB PO SCH (08:13)
[2016-11-17] MEDS: PREDNISONE 20 MG TAB PO SCH (08:13)
[2016-11-17] MEDS: GUAIFENESIN ER 600 MG TABCR PO SCH ×2 (08:13→20:33)
[2016-11-17] MEDS: AMIODARONE 200 MG TAB PO SCH (08:14)
[2016-11-17] MEDS: METOPROLOL TART 50 MG TAB PO SCH ×2 (08:14→20:34)
[2016-11-17] MEDS: Furosemide 80 MG TAB PO SCH (08:14)
[2016-11-17] MEDS: METRONIDAZOLE 250 MG TAB PO SCH ×3 (08:14→20:33)
[2016-11-17] MEDS: KCL 20 MEQ PACK PO SCH ×3 (08:14→20:33)
[2016-11-17] MEDS: FEXOFENADINE 180 MG TAB PO SCH (08:15)
[2016-11-17] MEDS: SPIRONOLACTONE 25 MG TAB PO SCH (08:43)
[2016-11-17] MEDS ORDERED: METOLAZONE 5 MG TAB PO SCH (09:00)
[2016-11-17] MEDS: DUONEB INH PRN ×2 (14:14→19:27)
[2016-11-17] MEDS: ENOXAPARIN 30 MG/0.3 ML SYR SUBQ SCH (20:31)
[2016-11-17] MEDS: DULoxetine 30 MG CAP PO SCH (20:32)
[2016-11-17] MEDS: [UNRECOGNIZED DRUG - OTHER] RECTAL SCH (20:49)
[2016-11-17] MEDS: LEVEMIR INSULIN SUBQ SCH (21:45)
[2016-11-17] MEDS: ALPRAZOLAM 0.25 MG TAB PO PRN (23:27)
[2016-11-18 03:06] VITALS: BP_SYST 110; RESP 16; TEMP 98.1
[2016-11-18] MEDS: SODIUM CHLORIDE 0.9% FLUSH BAG 500 ML IV SCH (05:43)
[2016-11-18] MEDS: PANTOPRAZOLE 40 MG TAB PO SCH ×2 (06:08→16:45)
[2016-11-18] MEDS: TREPROSTINIL 1.74 MG/2.9 ML INH SCH ×4 (06:27→22:22)
[2016-11-18] MEDS: DUONEB INH PRN ×4 (06:27→22:21)
[2016-11-18] MEDS: NEB-BROVANA 15 MCG/2 ML INH SCH ×2 (06:27→18:19)
[2016-11-18 07:20] VITALS: BP_SYST 116; RESP 18; TEMP 97.6
[2016-11-18] MEDS: *HOME MEDS IN MED CART XX SCH ×2 (08:00→20:00)
[2016-11-18] MEDS: SALINE FLUSH 10 ML FLUSH SCH ×2 (09:58→21:18)
[2016-11-18] MEDS: ADEMPAS 2.5 MG PO SCH ×3 (10:01→21:19)
[2016-11-18] MEDS: BOSENTAN 125 MG PO SCH ×2 (10:02→21:19)
[2016-11-18] MEDS: FEXOFENADINE 180 MG TAB PO SCH (10:03)
[2016-11-18] MEDS: METRONIDAZOLE 250 MG TAB PO SCH ×3 (10:03→21:21)
[2016-11-18] MEDS: PREDNISONE 20 MG TAB PO SCH (10:04)
[2016-11-18] MEDS: MONTELUKAST 10 MG TAB PO SCH (10:04)
[2016-11-18] MEDS: ENOXAPARIN 30 MG/0.3 ML SYR SUBQ SCH (10:06)
[2016-11-18] MEDS ORDERED: MISSING DOSE XX ONE (10:20)
[2016-11-18] MEDS: AMIODARONE 200 MG TAB PO SCH (10:24)
[2016-11-18] MEDS: METOPROLOL TART 50 MG TAB PO SCH ×2 (10:24→21:25)
[2016-11-18 10:50] VITALS: BP_SYST 111; RESP 18; TEMP 97.7
[2016-11-18] MEDS: novoLOG MIX 70/30 INSULIN SUBQ SCH (11:07)
[2016-11-18] MEDS: SPIRONOLACTONE 25 MG TAB PO SCH (11:10)
[2016-11-18] MEDS: GUAIFENESIN ER 600 MG TABCR PO SCH ×2 (11:11→21:21)
[2016-11-18] MEDS: KCL 20 MEQ PACK PO SCH ×3 (11:32→21:20)
[2016-11-18 15:01] VITALS: BP_SYST 94; RESP 18; TEMP 97.9
[2016-11-18] MEDS ORDERED: novoLOG MIX 70/30 INSULIN SUBQ SCH (17:00)
[2016-11-18] MEDS ORDERED: novoLOG MIX 70/30 INSULIN SUBQ ONE (17:40)
[2016-11-18 19:55] VITALS: BP_SYST 103; RESP 20; TEMP 98.3
[2016-11-18] MEDS: DULoxetine 30 MG CAP PO SCH (21:21)
[2016-11-18] MEDS: LEVEMIR INSULIN SUBQ SCH (21:23)
[2016-11-18] MEDS: [UNRECOGNIZED DRUG - OTHER] RECTAL SCH (21:24)
[2016-11-18 22:50] VITALS: BP_SYST 120; RESP 18; TEMP 98
[2016-11-19] MEDS: ALPRAZOLAM 0.25 MG TAB PO PRN (01:08)
[2016-11-19 03:05] VITALS: BP_SYST 112; RESP 16; TEMP 98.3
[2016-11-19] MEDS: SODIUM CHLORIDE 0.9% FLUSH BAG 500 ML IV SCH (06:00)
[2016-11-19] MEDS: PANTOPRAZOLE 40 MG TAB PO SCH (06:11)
[2016-11-19] MEDS: NEB-BROVANA 15 MCG/2 ML INH SCH (07:05)
[2016-11-19] MEDS: TREPROSTINIL 1.74 MG/2.9 ML INH SCH ×2 (07:05→14:56)
[2016-11-19] MEDS: DUONEB INH PRN ×2 (07:05→14:56)
[2016-11-19 07:44] VITALS: BP_SYST 108; RESP 18; TEMP 98.3
[2016-11-19] MEDS ORDERED: novoLOG MIX 70/30 INSULIN SUBQ SCH ×2 (08:00→17:00)
[2016-11-19] MEDS: *HOME MEDS IN MED CART XX SCH (08:00)
[2016-11-19] MEDS: ADEMPAS 2.5 MG PO SCH (08:10)
[2016-11-19] MEDS: BOSENTAN 125 MG PO SCH (08:10)
[2016-11-19] MEDS: SALINE FLUSH 10 ML FLUSH SCH (08:10)
[2016-11-19] MEDS: AMIODARONE 200 MG TAB PO SCH (08:11)
[2016-11-19] MEDS: METOPROLOL TART 50 MG TAB PO SCH (08:11)
[2016-11-19] MEDS: FEXOFENADINE 180 MG TAB PO SCH (08:11)
[2016-11-19] MEDS: GUAIFENESIN ER 600 MG TABCR PO SCH (08:12)
[2016-11-19] MEDS: KCL 20 MEQ PACK PO SCH (08:12)
[2016-11-19] MEDS: METRONIDAZOLE 250 MG TAB PO SCH (08:12)
[2016-11-19] MEDS: MONTELUKAST 10 MG TAB PO SCH (08:13)
[2016-11-19] MEDS: PREDNISONE 20 MG TAB PO SCH (08:13)
[2016-11-19] MEDS: ENOXAPARIN 30 MG/0.3 ML SYR SUBQ SCH (08:14)
[2016-11-19 11:05] VITALS: BP_SYST 107; RESP 18; TEMP 97.7
[2016-11-19 13:40] VITALS: BP_SYST 107; RESP 18; TEMP 97.7
== END 2016-11-19 15:00 | disposition home health service (06) | DRG 377 ==
LOC: ENRESERVTM → ENRESERVDT → ER 11:05 → EMR 15:13 → DELPENDDIS 15:13 → ENPENDDIS 15:13 → 3NT 18:10
PROVIDERS: ADMIT Internal Medicine; ATTEND Internal Medicine
CPT/HCPCS: 36415; 36430; 36600; 71010; 71020; 80048; 80053; 82274; 82607; 82728; 82746; 82803; 82947; 83540; 83735; 83880; 84439; 84443; 84466; 85025; 85610; 85730; 86850; 86900; 86901; 86902; 86922; 93005; 94640; 94799; 99223; 99232; 99233